=== PATIENT | male | born 1965 | race African-American/Black ===

== ENCOUNTER 2019-12-11 06:16 | Emergency (ER) | payer SELFPAY ==
[~2019-12-11] VITALS: Ht 177.8 cm; Wt 95.0 kg
[2019-12-11 06:35] VITALS: BP 155/83
--- NOTE | 2019-12-11 06:51 | PHYS DOC ---
General Adult EDM: Chief Complaint: ANKLE PROBLEM HPI: HPI: Patient is a 54 year old previously healthy male who presents to the Emergency Room complaining of R ankle pain. Patient states yesterday he was walking down the driveway when he stepped weird and rolled his ankle. He states he iced it last night which helped. He woke up this morning and was unable to bear weight on it so he came to get it checked out. Pain is the worst laterally, but he has some soreness on the inside of his ankle as well. Denies any other injuries. He has not taken anything this morning for pain. Review of Systems: Review of Systems: Negative other than marked Heart Score: Risk Factors: Risk Factors: DM, Current or recent (<one month) smoker, HTN, HLP, family hi story of CAD, obesity. Risk Scores: Score 0 - 3: 2.5% MACE over next 6 weeks - Discharge Home Score 4 - 6: 20.3% MACE over next 6 weeks - Admit for Clinical Observation Score 7 - 10: 72.7% MACE over next 6 weeks - Early Invasive Strategies Physical Exam: PE: General: Awake, alert, NAD. Well Nourished, well hydrated. Cooperative HEENT: Atraumatic, EOMI, PERRL, airway patent, moist oral mucosa Neck: Supple, trachea midline Respiratory: CTA bilaterally, normal effort, no wheezing/crackles CV: RRR, no murmur, cap refill <2 GI: Soft, nondistended, nontender, no masses MSK: R ankle: lateral malleolus tenderness, minimal swelling. Skin: Warm, dry, intact Neuro: A&O x3, speech NL, sensory and motor grossly intact, no focal deficits Psych: Normal affect, normal mood, not suicidal or homicidal EKG: EKG: [] Radiology/Procedures: Radiology/Procedures: [] Course & Med Decision Making: Course & Med Decision Making Pertinent Labs and Imaging studies reviewed. (See chart for details) Patient is a 54 year old male who presents to the Emergency Room with ankle pain/swelling. He has tenderness along the lateral malleolus and Xray will be done to rule out fracture. Xray shows chronic changes, but no acute fractures. Patient's test results and vitals while in the ED were fully reviewed and discussed with the patient. Patient is stable and at this time does not need admission to the hospital. We have discussed strict return precautions and the importance of following up with their Primary Care Physician. Patient stated understanding and was given an opportunity to ask any questions. Patient is in agreement with plan. Humberto Disclaimer: Humberto Disclaimer: This electronic medical record was generated, in whole or in part, using a voice recognition dictation system. Departure Departure Impression: Primary Impression: Ankle sprain Disposition: HOME, SELF-CARE Condition: STABLE Referrals: NO PCP (PCP) Patient Instructions: Ankle Sprain Justicifation of Admission Dx: Justifications for Admission: Justification of Admission Dx: N/A EDJON ORTEGA MD Dec 11, 2019 06:51
--- NOTE | 2019-12-11 07:41 | RAD ---
EXAM: Right ankle, 3 views. HISTORY: Stepped in a hole. COMPARISON: None. FINDINGS: 3 views of the right ankle are obtained. 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 No acute fracture is seen. The ankle mortise is intact. There is no osteochondral lesion. IMPRESSION: No acute osseous finding. 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 Electronically signed by: Evi Rizzo MD (12/11/2019 7:38 AM) [id number]
== END 2019-12-11 08:00 | disposition home or self-care (01) ==
LOC: ER 06:16
DX: S93.401A Sprain of unspecified ligament of right ankle, initial encounter (principal); X50.1XXA Overexertion from prolonged static or awkward postures, initial encounter; Y93.01 Activity, walking, marching and hiking; Y92.89 Other specified places as the place of occurrence of the external cause; Y99.8 Other external cause status
CPT/HCPCS: 73610; 99283